=== PATIENT | male | born 1945 | race Caucasian/White ===

== ENCOUNTER 2024-09-29 11:31 | Emergency (ER) | payer OTHER ==
--- NOTE | 2024-09-29 13:01 | RAD REPORT ---
Procedure: Chest Single View HISTORY: Cough COMPARISON: none FINDINGS: The lungs are moderately hyperaerated. Bilateral upper lobe volume loss. Prominent reticular nodular opacities are present within the lungs. No significant pleural effusion noted. The heart is normal size. IMPRESSION: COPD Prominent reticular nodular opacities within the lungs. All of these may be chronic. A pneumonitis/at ypical infection can have a similar appearance.
[2024-09-29] MEDS ORDERED: AZITHROMYCIN 250 MG TAB ONE (13:27)
[2024-09-29] MEDS ORDERED: predniSONE 20 MG TAB ONE (13:27)
[2024-09-29] MEDS ORDERED: KETOROLAC 30 MG/ML INJ ONE (13:27)
[2024-09-29 13:59] LABS: ALT/SGPT 22 U/L (16-61); AST/SGOT 19 U/L (15-37); Albumin 3.3 g/dL (3.4-5.0); Albumin/Globulin Ratio 0.7 (1.1-1.8); Alkaline Phosphatase 110 U/L (45-117); Anion Gap 9.5 mEq/L (5.0-15.0); BUN Blood Urea Nitrogen 16 mg/dL (7-18); Bicarbonate 27 mEq/L (21-32); Bilirubin Total 0.4 mg/dL (0.2-1.0); Globulin 4.9 g/dL (2.3-3.5); Glomerular Filtration Rate 90 ml/min (=/>90); Glucose Level 110 mg/dL (74-106); NT PRO-BNP 1068 pg/mL (<450); Potassium 3.5 mEq/L (3.5-5.1); Protein, Total 8.2 g/dL (6.4-8.2); Sodium Level 138 mEq/L (136-145)
[2024-09-29 14:02] LABS: Bilirubin Direct < 0.2 mg/dL (0-0.2); Bilirubin Indirect, Calculated 0.2 mg/dL (0.2-0.8)
[2024-09-29 14:26] LABS: SARS-CoV-2 Antigen CONTROL BLUE LINE VIS/BG OK; SARS-CoV-2 Antigen Rapid Res Negative (Negative)
[2024-09-29] MEDS ORDERED: TRAMADOL HCL 50 MG TAB ONE (15:05)
[2024-09-29 15:10] LABS: Absolute Basophils ND K/uL (0-0.5); Absolute Eosinophils ND K/uL (0-0.5); Absolute Lymphocytes (CBC) ND K/uL (0.7-4.9); Absolute Monocytes ND K/uL (0.1-1.3); Absolute Neutrophil ND K/uL (1.8-8.0); Basophils % ND % (0-1.3); Eosinophils % ND % (0-4.4); Hematocrit ND % (39.6-49.0); Hemoglobin ND g/dL (13.6-17.9); Lymphocytes % ND % (15.3-44.8); MCH ND pg (27.0-35.0); MCHC ND g/dL (32.0-36.0); MCV ND fL (80-100); MPV ND fL (7.6-11.3); Monocytes % ND % (3.3-12.3); Neutrophils % ND % (41.7-73.7); Nucleated RBC Absolute Count ND (0-0); Nucleated Red Blood Cells % ND % (0-0); Platelet Distribution Width ND fL (9.0-17.0); Platelets ND thou/uL (152-406); RBC Red Blood Cell Count ND M/uL (4.33-5.43); Red Cell Distribution Width ND % (12.1-15.2); White Blood Count ND thou/uL (4.3-10.9)
--- NOTE | 2024-09-29 15:33 | EDPHYS ---
Physician Documentation [facility] Name: Connor Pruett Age: 78 yrs Sex: Male : 1945 Arrival Date: 09/29/2024 Time: 11:31 Bed 14 Private MD: ED Physician Dagoberto Stallworth HPI: 09/29 14:46 This 78 yrs old Male presents to ER via Wheelchair with complaints of Fatigue, Sinus rt Pain. 14:46 Patient presents to the ED with 3 days of cough, fatigue, body aches, pain over the rt left frontal and maxillary sinuses. He denies shortness of breath but the daughter states that he was short of breath. The patient denies other acute complaints at this time, symptoms are moderate in severity, no other aggravating or alleviating factors.. Historical: - Allergies: 11:48 PENICILLINS; hb - PMHx: 11:48 Hypertension; High Cholesterol; hb - PSHx: 11:48 Hernia Repair; Face; hb - Immunization history:: Adult Immunizations up to date. - Infectious Disease History:: Denies. - Social history:: Smoking status: Patient denies any tobacco usage or history of. - Family history:: not pertinent. ROS: 14:46 Constitutional: Negative for fever, chills, and weight loss, Cardiovascular: Negative rt for chest pain, palpitations, and edema, Abdomen/GI: Negative for abdominal pain, nausea, vomiting, diarrhea, and constipation, MS/Extremity: Negative for injury and deformity, Skin: Negative for injury, rash, and discoloration, Neuro: Negative for headache, weakness, numbness, tingling, and seizure, 14:46 ENT: Positive for sinus congestion, sinus pain, 14:46 Respiratory: Positive for cough, shortness of breath, Exam: 14:46 Constitutional: This is a well developed, well nourished patient who is awake, alert, rt and in no acute distress. Head/Face: Normocephalic, atraumatic. Chest/axilla: Normal chest wall appearance and motion. Nontender with no deformity. No lesions are appreciated. Cardiovascular: Regular rate and rhythm with a normal S1 and S2. No gallops, murmurs, or rubs. Normal PMI, no JVD. No pulse deficits. Respiratory: Lungs have equal breath sounds bilaterally, clear to auscultation and percussion. No rales, rhonchi or wheezes noted. No increased work of breathing, no retractions or nasal flaring. Abdomen/GI: Soft, non-tender, with normal bowel sounds. No distension or tympany. No guarding or rebound. No evidence of tenderness throughout. Skin: Warm, dry with normal turgor. Normal color with no rashes, no lesions, and no evidence of cellulitis. MS/ Extremity: Pulses equal, no cyanosis. Neurovascular intact. Full, normal range of motion. Neuro: Awake and alert, GCS 15, oriented to person, place, time, and situation. Cranial nerves II-XII grossly intact. Motor strength 5/5 in all extremities. Sensory grossly intact. Cerebellar exam normal. Normal gait. 14:46 ENT: Tenderness to palpation over the left frontal, maxillary sinuses, no other areas of tenderness, skin is normal.. 14:46 ECG was reviewed by the Attending Physician. Vital Signs: 11:46 BP 181 / 105; Pulse 89; Resp 20; Temp 97.9; Pulse Ox 96% on R/A; Weight 58.97 kg; hb Height 6 ft. 1 in. ; Pain 10/10; 15:00 BP 177 / 99; Pulse 82; Resp 16; Pulse Ox 95% on R/A; db 11:46 Body Mass Index 17.15 (58.97 kg, 185.42 cm) hb 11:46 Pain Scale: Adult hb MDM: 11:50 Medical Screening Exam initiated rt 18:00 Differential Diagnosis: Other Sinusitis, viral syndrome, b bronchospasm. Data reviewed: rt vital signs, nurses notes, lab test result(s), EKG, radiologic studies. I considered the following discharge prescriptions or medication management in the emergency department Medications were administered in the Emergency Department. See MAR. Independent interpretation of the following test(s) in the Emergency Department X-Ray: My interpretation is No infiltrate seen on interpretation of x-ray images. Test considered but Not performed: CT: No significant headache, benign physical examination, CT scan is not indicated. Care significantly affected by the following chronic conditions: Hypertension. Counseling: I had a detailed discussion with the patient and/or guardian regarding the historical points, exam findings, and any diagnostic results supporting the discharge/admit diagnosis, lab results, radiology results, the need for outpatient follow up. Response to treatment: the patient's symptoms have markedly improved after treatment. 09/29 11:57 Order name: Basic Metabolic Panel; Complete Time: 14:30 rt 09/29 11:57 Order name: CBC with Diff; Complete Time: 15:12 rt 09/29 11:57 Order name: LFT's; Complete Time: 14:30 rt 09/29 11:57 Order name: NT PRO-BNP; Complete Time: 14:30 rt 09/29 11:57 Order name: Troponin HS; Complete Time: 14:30 rt 09/29 11:57 Order name: Influenza Screen (a \T\ B); Complete Time: 14:30 rt 09/29 11:57 Order name: SARS RAPID; Complete Time: 14:30 rt 09/29 11:57 Order name: XRAY Chest (1 view); Complete Time: 14:30 rt 09/29 11:57 Order name: Cardiac monitoring; Complete Time: 15:09 rt 09/29 11:57 Order name: EKG - Nurse/Tech; Complete Time: 13:32 rt 09/29 11:57 Order name: IV Saline Lock; Complete Time: 13:32 rt 09/29 11:57 Order name: Labs collected and sent; Complete Time: 13:32 rt 09/29 11:57 Order name: O2 Per Protocol; Complete Time: 13:33 rt 09/29 11:57 Order name: O2 Sat Monitoring; Complete Time: 13:33 rt EC:46 Rate is 86 beats/min. Rhythm is regular, Normal Sinus Rhythm with No ectopy. Right axis rt deviation noted. TN interval is normal. QRS interval is normal. QT interval is normal. No Q waves. T waves are Normal. No ST changes noted. Interpreted by me. Administered Medications: 13:31 Drug: Ketorolac IM 15 mg IM once Route: IM; Site: left deltoid; hb 15:59 Follow up: Response: No adverse reaction db 13:32 Drug: predniSONE PO 40 mg PO once Route: PO; hb 15:59 Follow up: Response: No adverse reaction db 13:32 Drug: AZITHromycin PO 500 mg PO once Route: PO; hb 15:59 Follow up: Response: No adverse reaction db 15:09 Drug: traMADol PO 50 mg PO once Route: PO; db 16:00 Follow up: Response: No adverse reaction db Disposition Summary: 09/29/24 15:33 Discharge Ordered Notes: Location: Home rt Problem: new rt Symptoms: have improved rt Condition: Stable rt Diagnosis - Acute frontal sinusitis rt - Cough rt - Essential (primary) hypertension rt Followup: rt - With: Private Physician - When: 2 - 3 days - Reason: Discharge Instructions: - Discharge Summary Sheet rt - Hypertension, Adult rt - Sinusitis, Adult rt - Cough, Adult rt Forms: - Medication Reconciliation Form rt - Antibiotic Education rt - Prescription Opioid Use rt - Patient Portal Instructions rt - Leadership Thank You Letter rt Prescriptions: - azithromycin 250 mg Oral tablet - take 1 tablet ORAL route daily for 4 days start on day 2 of therapy; 4 tablet; rt Refills: 0, Product Selection Permitted - Lisinopril 10 mg Oral tablet - take 1 tablet ORAL route once daily; 30 tablet; Refills: 0, Product Selection rt Permitted - Tramadol 50 mg Oral Tablet - take 1 tablet ORAL route every 8 hours as needed; 12 tablet; Refills: 0, rt Product Selection Permitted - Prednisone 20 mg Oral tablet - take 1 tablet ORAL route once daily; 4 tablet; Refills: 0, Product Selection rt Permitted Signatures: Dispatcher [employer] EDMS Rosita Moya RN RN Mary Tai RN RN db Dagoberto Stallworth MD MD rt Corrections: (The following items were deleted from the chart) 11:50 11:48 Allergies: No Known Allergies; hb hb 11:57 11:57 BASIC METABOLIC PANEL+C.LAB.BRZ ordered. EDMS EDMS 11:57 11:57 CBC+H.LAB.BRZ ordered. EDMS EDMS 11:57 11:57 HEPATIC FUNCTION+C.LAB.BRZ ordered. EDMS EDMS 11:57 11:57 PROBNP+C.LAB.BRZ ordered. EDMS EDMS 11:57 11:57 Troponin High Sensitivity+C.LAB.BRZ ordered. EDMS EDMS 11:57 11:57 Influenza Screen (A \T\ B)+BA.LAB.BRZ ordered. EDMS EDMS 11:57 11:57 SARS-COV-2 Antigen Rapid+I.LAB.BRZ ordered. EDMS EDMS 11:57 11:57 Chest Single View+RAD.RAD.BRZ ordered. EDMS EDMS
--- NOTE | 2024-09-29 15:33 | ER ---
Nurse's Notes [facility] Name: Connor Pruett Age: 78 yrs Sex: Male : 1945 Arrival Date: 09/29/2024 Time: 11:31 Bed 14 Private MD: Diagnosis: Acute frontal sinusitis;Cough;Essential (primary) hypertension Presentation: 09/29 11:46 Chief complaint: Sinus congestion, headache, extreme fatigue and body aches x 3 days. hb Coronavirus screen: At this time, the client does not indicate any symptoms associated with coronavirus-19. Ebola Screen: No symptoms or risks identified at this time. Initial Sepsis Screen: Does the patient meet any 2 criteria? No. Patient's initial sepsis screen is negative. Does the patient have a suspected source of infection? No. Patient's initial sepsis screen is negative. Risk Assessment: Do you want to hurt yourself or someone else? Patient reports no desire to harm self or others. Onset of symptoms was September 27, 2024. 11:46 Method Of Arrival: Wheelchair hb 11:46 Acuity: LOLIS 3 hb Historical: - Allergies: 11:48 PENICILLINS; hb - PMHx: 11:48 Hypertension; High Cholesterol; hb - PSHx: 11:48 Hernia Repair; Face; hb - Immunization history:: Adult Immunizations up to date. - Infectious Disease History:: Denies. - Social history:: Smoking status: Patient denies any tobacco usage or history of. - Family history:: not pertinent. Screenin:29 [facility] ED Fall Risk Assessment (Adult) History of falling in the last 3 months, db including since admission No falls in past 3 months (0 pts) Confusion or Disorientation No (0 pts) Intoxicated or Sedated No (0 pts) Impaired Gait Yes (1 pt) Mobility Assist Device Used Yes (1 pt) Altered Elimination No (0 pt) Score/Fall Risk Level 0 - 2 = Low Risk Oriented to surroundings, Maintained a safe environment. Abuse screen: Denies threats or abuse. Denies injuries from another. Nutritional screening: No deficits noted. Tuberculosis screening: No symptoms or risk factors identified. Assessment: 15:00 Reassessment: Patient appears in no apparent distress at this time. Patient and/or db family updated on plan of care and expected duration. Pain level reassessed. Patient is alert, oriented x 3, equal unlabored respirations, skin warm/dry/pink. General: Appears in no apparent distress. comfortable, Behavior is calm, cooperative. Pain: Complains of pain in face. Neuro: Level of Consciousness is awake, alert, obeys commands, Oriented to person, place, time, situation. Respiratory: Airway is patent Respiratory effort is even, unlabored, Respiratory pattern is regular, symmetrical. 15:58 Reassessment: Patient appears in no apparent distress at this time. Patient and/or db family updated on plan of care and expected duration. Pain level reassessed. Patient is alert, oriented x 3, equal unlabored respirations, skin warm/dry/pink. Vital Signs: 11:46 BP 181 / 105; Pulse 89; Resp 20; Temp 97.9; Pulse Ox 96% on R/A; Weight 58.97 kg; hb Height 6 ft. 1 in. ; Pain 10/10; 15:00 BP 177 / 99; Pulse 82; Resp 16; Pulse Ox 95% on R/A; db 11:46 Body Mass Index 17.15 (58.97 kg, 185.42 cm) hb 11:46 Pain Scale: Adult hb ED Course: 11:34 Patient arrived in ED. im 11:36 Dagoberto Stallworth MD is Attending Physician. rt 11:48 Triage completed. hb 11:50 Arm band placed on. hb 12:09 XRAY Chest (1 view) In Process Unspecified. EDMS 13:32 Initial lab(s) drawn, by me, sent to lab. EKG done, by ED staff, reviewed by Dagoberto Stallworth MD COVID swab sent to lab. Flu and/or RSV swab sent to lab. Inserted saline lock: 20 gauge in right forearm, using aseptic technique. Blood collected. Flushed with 10 mL NS. 13:33 SARS RAPID Sent. ty 13:33 Influenza Screen (a \T\ B) Sent. ty 13:33 Basic Metabolic Panel Sent. ty 13:33 CBC with Diff Sent. ty 13:33 LFT's Sent. ty 13:33 NT PRO-BNP Sent. ty 13:33 Troponin HS Sent. ty 15:00 Patient has correct armband on for positive identification. Bed in low position. Call db light in reach. Side rails up X 1. Pulse ox on. NIBP on. Warm blanket given. Pillow given. 15:08 Mary Tai, RN is Primary Nurse. db 15:58 Provided Education on: DISCHARGE. db 15:58 No provider procedures requiring assistance completed. IV discontinued, intact, db bleeding controlled, No redness/swelling at site. Administered Medications: 13:31 Drug: Ketorolac IM 15 mg IM once Route: IM; Site: left deltoid; hb 15:59 Follow up: Response: No adverse reaction db 13:32 Drug: predniSONE PO 40 mg PO once Route: PO; hb 15:59 Follow up: Response: No adverse reaction db 13:32 Drug: AZITHromycin PO 500 mg PO once Route: PO; hb 15:59 Follow up: Response: No adverse reaction db 15:09 Drug: traMADol PO 50 mg PO once Route: PO; db 16:00 Follow up: Response: No adverse reaction db Medication: 15:58 VIS not applicable for this client. db Outcome: 15:33 Discharge ordered by MD. rt 15:58 Discharged to home via wheelchair, with family, db 15:58 Condition: stable 15:58 Discharge instructions given to patient, Instructed on discharge instructions, follow up and referral plans. Prescriptions given X 4, 16:00 Patient left the ED. db Signatures: Dispatcher [employer] EDMS Rosita Moya RN RN hb Benton, Danielle, RN RN db Dagoberto Stallworth MD MD rt Gissell Flynn im Jam Cotton ty Corrections: (The following items were deleted from the chart) 11:50 11:48 Allergies: No Known Allergies; hb hb 11:54 11:46 Chief complaint: Sinus congestion, headache, and body aches x 3 days. hb hb 11:54 11:46 Acuity: LOLIS 4 hb hb
[2024-09-29 18:20] VITALS: TEMP 97.9
[2024-09-29 18:21] VITALS: BP 177/99; O2SAT 95
--- NOTE | 2024-10-03 12:43 | EKG ---
Test Date: 2024-09-29 Test Time: 13:23:57 [employer] Can Laborer: JESSICA MEASUREMENT RESULTS: Intervals: Rate: 86 PA: 142 QRSD: 84 QT: 374 QTc: 447 [place]: P: 87 PA: 142 QRS: 91 T: 72 INTERPRETIVE STATEMENTS: Normal sinus rhythm with sinus arrhythmia Rightward axis Borderline ECG No previous ECG available for comparison Electronically Signed On 10-03-24 12:35:58 [employer]ST [employer] OPERATOR by Crow Menezes
== END 2024-09-29 16:00 | disposition home or self-care (01) ==
LOC: ER 11:31
DX: J01.10 Acute frontal sinusitis, unspecified (principal); I10 Essential (primary) hypertension; Z11.52 Encounter for screening for COVID-19
CPT/HCPCS: 85025; 80048; 36415; 80076; 84484; 83880; 87804 ×2; 71045; 96372; 99284; 87811; J7512; 93005

== ENCOUNTER 2024-12-04 13:33 | Inpatient (IN) | payer OTHER ==
--- OUTSIDE RECORDS SUMMARY | 2024-12-04 13:37 | XMS REPORT | Continuity of Care Document ---
Author Name Unknown Address [address] [facility] [address] [place] [address] Organization [facility] [place] Address [address] [facility] [address] [place] [address] Care Team Providers Care [employer] Name Role Phone Narciso CASAREZ, Florenciaalejandra Primary Care Physic romero NOMAN AVILA Attending Clinician Alesia Elizalde MD, Noman Brian Attending Clinician [phone] Doctor Unassigned, Fithian Attending Clinician U navailable ANUM_MARSHALL_Yovana_S Attending Clinician Unavailable NOMAN AVILA Admitting Clinician Alesia Elizalde MD, Noman Brian Admitting Clinician [phone] JULIUS_Yovana_Contreras Admitting Clinician Unavailable Payers Payer Name Policy Type Policy Number Effective Date Expirati on Date Source MEDICARE PART A \T\ [id number] 2009 00:00:00 Problems Condition Name Condition Details Condition Category Status Onset Date Resolution Date Last Treatment Date Treating Clinician Comments Source Dyspnea (finding) Dyspnea (finding) Active Problem 12/26/2018 [facility] Problem Active 2018-12-26 11:02:54 Bruce Alcantara Hypoxemia (disorder) Hypoxemia (disorder) Active Problem 12/26/2018 [facility] Problem Active 2018-12-26 11:02:54 Bruce Alcantara Chronic obstructiv e lung disease (disorder) Chronic obstructiv e lung disease (disorder) Active Problem 12/26/2018 [facility] Problem Active 2018-12-26 11:02:54 Bruce Alcantara Cough (finding) Cough (finding) Active Problem 12/26/2018 [facility] Problem Active 2018-12-26 11:02:54 Bruce Alcantara Allergies, Adverse Reactions, Alerts Allergy Name Allergy Type Status Severity Reaction(s) Onset Date Inactive Date Treating Clinician Comments Source Penicill in G Drug Allergy Active Hives 12-03 00:00: 00 [facility] PENICILL IN G DRUG INGREDI Active High Hives 12-03 00:00: 00 [facility] NO KNOWN ALLERGIE S Drug Class Active [facility] penicill ins penicill ins Active Bruce Alcantara Social History Social Habit Start Date Stop Date Quantity Comments Source History of tobacco use Cigarette Smoker [facility] Exposure to SARS-CoV-2 (event) 2022-12-07 00:00:00 2022-12-17 11:53:00 Not sure [facility] Tobacco use and exposure 2022-12-03 00:00:00 2022-12-03 00:00:00 Smokeless tobacco non-user [facility] Sex Assigned At 1945 00:00:00 1945 00:00:00 [facility] Smoking Status Start Date Stop Date Source Smokes tobacco daily 2022-12-03 00:00:00 [facility] Social History 2017-11-08 20:15:53 2017-11-08 20:15:53 Tai Alcantara Medications Ordered Medication Name Filled Medication Name Start Date Stop Date Current Medication? Ordering Clinician Indication Dosage Frequency Signature (SIG) Comments Components Source neomycin-po lymyxin-dex amethasone (MAXITROL) 3.5 mg/g-10,000 unit/g-0.1 % ophthalmic ointment 12-22 18:07: 00 12-22 18:47 :43 No PRN, Starting on Tue12/22/22 at 1307, Until Tue12/22/22 at 1347, Routine, Intra-op [facility] sodium chloride (NS) injection 12-22 18:06: 00 12-22 18:47 :43 No PRN, Starting on Tue12/22/22 at 1306, Until Tue12/22/22 at 1347, Routine, [facility]-op [facility] dexamethaso ne (DECADRON PHOSPHATE) injection 12-22 18:06: 00 12-22 18:47 :43 No PRN, Starting on Tue12/22/22 at 1306, Until Tue12/22/22 at 1347, Routine, Intra-op [facility] ceFAZolin (ANCEF) injection 12-22 18:06: 00 12-22 18:47 :43 No PRN, Starting on Tue12/22/22 at 1306, Until Tue12/22/22 at 1347, ELVIRA, Intra-op [facility] carbachoL (MIOSTAT) 0.01 % intraocular injection 12-22 18:05: 00 12-22 18:47 :43 No PRN, Starting on Tue12/22/22 at 1305, Until Tue12/22/22 at 1347, Routine, Intra-op [facility] EPINEPHrine 1:1,000 (1 mg/mL) (ADRENALIN) injection 12-22 17:53: 00 12-22 18:47 :43 No PRN, Starting on Tue12/22/22 at 1253, Until Tue12/22/22 at 1347, Routine, Intra-op [facility] chondroitin sulf-sod hyaluronate (DUOVISC VISCO ELASTIC) intraocular injection 12-22 17:53: 00 12-22 18:47 :43 No PRN, Starting on Tue12/22/22 at 1253, Until Tue12/22/22 at 1347, Routine, Intra-op [facility] balanced salt irrig soln comb1 (BSS PLUS) ophthalmic solution 500 mL bag 12-22 17:53: 00 12-22 18:47 :43 No PRN, Starting on Tue12/22/22 at 1253, Until Tue12/22/22 at 1347, Routine, Intra-op [facility] water for irrigation irrigation solution 12-22 17:48: 00 12-22 18:47 :43 No PRN, Starting on Tue12/22/22 at 1248, Until Tue12/22/22 at 1347, Routine, Intra-op [facility] Hyaluronida se, Human Recomb. (HYLENEX) injection 12-22 17:45: 00 12-22 18:47 :43 No PRN, Starting on Tue12/22/22 at 1245, Until Tue12/22/22 at 1347, Routine, Intra-op [facility] eye block syringe 11 mL 12-22 17:45: 00 12-22 18:47 :43 No PRN, Starting on Tue12/22/22 at 1245, Until Tue12/22/22 at 1347, Intra-op [facility] albuterol 90 mcg/actuati on inhaler 12-22 17:14: 11 Yes 2{puff} Inhale 2 Puffs every 6 (six) hours as needed for Wheezing or Shortness of Breath. [facility] ipratropium 17 mcg/actuati on inhaler 12-22 17:14: 11 Yes 2{puff} Inhale 2 Puffs 4 (four) times daily. As needed [facility] propylene glycol/peg 400/PF (SYSTANE, PF, OPHTHALMIC) 12-22 17:14: 11 Yes 1[drp] Place 1 Drop in each eye as needed. Both eyes [facility] Carica Papaya (PAPAYA ENZYME) Tab 12-22 17:14: 11 Yes 1{tbl} Take 1 tablet by mouth in the morning. [facility] ibuprofen 600 mg tablet 12-22 17:14: 11 Yes 600mg Take 1 tablet by mouth in the morning. [facility] dextrometho rphan-guaif enesin (MUCINEX DM) 30-600 mg per tablet 12-22 17:14: 11 Yes 1{tbl} Take 1 tablet by mouth in the morning and 1 tablet in the evening. [facility] hydrocodone /chlorphen p-stirex (TUSSIONEX PENNKINETIC ER ORAL) 12-22 17:14: 11 Yes 1{tbl} Take 1 tablet by mouth in the morning and 1 tablet in the evening. [facility] cyclopent 1%-tropic 1%-phenyl 2.5%-ketor 0.5% (MYDRIATIC #5) ophthalmic solution syringe 0.5 mL 12-22 16:45: 00 12-22 16:48 :00 No .5mL 0.5 mL, Right Eye, ONCE, 1 dose, On Tue12/22/22 at 1145, Routine, DSU Pre-op [facility] lactated ringers IV infusion 1,000 mL 12-22 16:45: 00 12-22 16:51 :00 No 1000mL at 42 mL/hr, 1,000 mL, IV Infusion, ONCE, 1 dose, On Tue12/22/22 at 1145, Routine, DSU Pre-op [facility] lactated ringers IV infusion 1,000 mL 12-08 17:30: 00 Yes 1000mL at 75 mL/hr, 1,000 mL, IV Infusion, CONTINUOUS , Starting on Tue12/08/22 at 1230, Until Discontinu ed, Routine, PACU [facility] FENTanyl PF (SUBLIMAZE (PF)) injection 25 mcg 12-08 17:21: 10 Yes 25ug 25 mcg, Slow IV Push, Q5MIN PRN, 4 doses, Starting on Tue12/08/22 at 1221, Until Discontinu ed, Routine, Pain (scale 4-6), PACU [facility] HYDROmorphO ne (DILAUDID) injection 0.2 mg 12-08 17:21: 10 Yes .2mg 0.2 mg, Slow IV Push, Q5MIN PRN, 10 doses, Starting on Tue12/08/22 at 1221, Until Discontinu ed, Routine, Pain (scale 7-10), PACU
Us e approved by (Faculty): PACU USE -ANESTHESI A SERVICE-HY DROMORPHON E INJECTIONS [facility] ondansetron (ZOFRAN (PF)) injection 4 mg 12-08 17:21: 10 Yes 4mg 4 mg, Slow IV Push, PRN, 1 dose, Starting on Tue12/08/22 at 1221, Until Discontinu ed, Routine, Nausea and Vomiting (N/V), [facility] irrigation solution 12-08 16:44: 00 12-08 17:23 :00 No PRN, Starting on Tue12/08/22 at 1144, Until Tue12/08/22 at 1223, Routine, Intra-op [facility] sodium chloride (NS) injection 12-08 16:41: 00 12-08 17:23 :00 No PRN, Starting on Tue12/08/22 at 1141, Until Tue12/08/22 at 1223, Routine, Intra-op [facility] neomycin-po lymyxin-dex amethasone (MAXITROL) 3.5 mg/g-10,000 unit/g-0.1 % ophthalmic ointment 12-08 16:40: 00 12-08 17:23 :00 No PRN, Starting on Tue12/08/22 at 1140, Until Tue12/08/22 at 1223, Routine, Intra-op [facility] Hyaluronida se, Human Recomb. (HYLENEX) injection 12-08 16:40: 00 12-08 17:23 :00 No PRN, Starting on Tue12/08/22 at 1140, Until Tue12/08/22 at 1223, Routine, Intra-op [facility] eye block syringe 11 mL 12-08 16:39: 00 12-08 17:23 :00 No PRN, Starting on Tue12/08/22 at 1139, Until Tue12/08/22 at 1223, Intra-op [facility] EPINEPHrine 1:1,000 (1 mg/mL) (ADRENALIN) injection 12-08 16:39: 00 12-08 17:23 :00 No PRN, Starting on Tue12/08/22 at 1139, Until Tue12/08/22 at 1223, Routine, Intra-op [facility] chondroitin sulf-sod hyaluronate (DUOVISC VISCO ELASTIC) intraocular injection 12-08 16:39: 00 12-08 17:23 :00 No PRN, Starting on Tue12/08/22 at 1139, Until Tue12/08/22 at 1223, Routine, [facility]amethas[facility] (DECADRON PHOSPHATE) injection 12-08 16:38: 00 12-08 17:23 :00 No PRN, Starting on Tue12/08/22 at 1138, Until Tue12/08/22 at 1223, Routine, Intra-op [facility] ceFAZolin (ANCEF) injection 12-08 16:38: 00 12-08 17:23 :00 No PRN, Starting on Tue12/08/22 at 1138, Until Tue12/08/22 at 1223, ELVIRA, Intra-op Univers [facility] carbachoL (MIOSTAT) 0.01 % intraocular injection 12-08 16:38: 00 12-08 17:23 :00 No PRN, Starting on Tue12/08/22 at 1138, Until Tue12/08/22 at 1223, Routine, Intra-op [facility] balanced salt irrig soln comb1 (BSS PLUS) ophthalmic solution 500 mL bag 12-08 16:37: 00 12-08 17:23 :00 No PRN, Starting on Tue12/08/22 at 1137, Until Tue12/08/22 at 1223, Routine, Intra-op [facility] cyclopent 1%-tropic 1%-phenyl 2.5%-ketor 0.5% (MYDRIATIC #5) ophthalmic solution syringe 0.5 mL 12-08 15:15: 00 12-08 15:29 :00 No .5mL 0.5 mL, Left Eye, ONCE, 1 dose, On Tue12/08/22 at 1015, Routine, DSU Pre-op [facility] albuterol 90 mcg/actuati on inhaler 12-08 14:49: 09 Yes 2{puff} Inhale 2 Puffs every 6 (six) hours as needed for Wheezing or Shortness of Breath. [facility] ipratropium 17 mcg/actuati on inhaler 12-08 14:49: 09 Yes 2{puff} Inhale 2 Puffs 4 (four) times daily. As needed [facility] propylene glycol/peg 400/PF (SYSTANE, PF, OPHTHALMIC) 12-08 14:49: 09 Yes 1[drp] Place 1 Drop in each eye as needed. Both eyes [facility] Carica Papaya (PAPAYA ENZYME) Tab 12-08 14:49: 09 Yes 1{tbl} Take 1 tablet by mouth in the morning. [facility] ibuprofen (IBU) 600 mg tablet 12-08 14:49: 09 Yes 600mg Take 1 tablet by mouth in the morning. [facility] Amlodipine 10 MG / atorvastati n 10 MG Oral Tablet 2016-09 19:49: 00 Yes 1 tab, PO, Bedtime, # 30 tab, 0 Refill(s) Bruce Alcantara Vital Signs Vital Name Observation Time Observation Value Comments S ource Oxygen saturation in Arterial blood by Pulse oximetry 2022-12-22 18:30:00 97 /min [facility] Systolic blood pressure 2022-12-22 18:30:00 174 mm[Hg] [facility] Diastolic blood pressure 2022-12-22 18:30:00 92 mm[Hg] [facility] Respiratory rate 2022-12-22 18:25:00 15 /min [facility] Heart rate 2022-12-22 18:20:00 87 /min [facility] Body temperature 2022-12-22 18:11:00 36.39 Radha [facility] Body height 2022-12-17 16:00:00 185.4 cm [facility] Body weight 2022-12-17 16:00:00 63.504 kg [facility] BMI 2022-12-17 16:00:00 18.47 kg/m2 [facility] Systolic blood pressure 2022-12-22 16:47:00 162 mm[Hg] [facility] Diastolic blood pressure 2022-12-22 16:47:00 97 mm[Hg] [facility] Heart rate 2022-12-22 16:45:00 91 /min [facility] Body temperature 2022-12-22 16:45:00 36.39 Radha [facility] Respiratory rate 2022-12-22 16:45:00 18 /min [facility] Oxygen saturation in Arterial blood by Pulse oximetry 2022-12-22 16:45:00 96 /min [facility] Body height 2022-12-17 16:00:00 185.4 cm Univ [facility] Body weight 2022-12-17 16:00:00 63.504 kg Univ [facility] BMI 2022-12-17 16:00:00 18.47 kg/m2 Univ [facility] Systolic blood pressure 2022-12-08 17:30:00 161 mm[Hg] [facility] Diastolic blood pressure 2022-12-08 17:30:00 96 mm[Hg] [facility] Respiratory rate 2022-12-08 17:30:00 18 /min [facility] Oxygen saturation in Arterial blood by Pulse oximetry 2022-12-08 17:30:00 94 /min [facility] Body temperature 2022-12-08 17:09:00 36.39 Radha [facility] Heart rate 2022-12-08 15:19:00 86 /min [facility] Body height 2022-12-03 15:00:00 185.4 cm [facility] Body weight 2022-12-03 15:00:00 63.504 kg Univ [facility] BMI 2022-12-03 15:00:00 18.47 kg/m2 [facility] Systolic blood pressure 2022-12-08 15:22:00 165 mm[Hg] [facility] Diastolic blood pressure 2022-12-08 15:22:00 93 mm[Hg] [place] [facility] Heart rate 2022-12-08 15:19:00 86 /min [facility] temperature 2022-12-08 15:19:00 36.56 Radha [facility] Respiratory rate 2022-12-08 15:19:00 14 /min [facility] Oxygen saturation in Arterial blood by Pulse oximetry 2022-12-08 15:19:00 98 /min [place] [facility] Body height 2022-12-03 15:00:00 185.4 cm [facility] Body weight 2022-12-03 15:00:00 63.504 kg [facility] BMI 2022-12-03 15:00:00 18.47 kg/m2 [facility] Systolic (mm Hg) 2017-11-08 20:14:00 [facility] Diastolic (mm Hg) 2017-11-08 20:14:00 [facility] Heart Rate 2017-11-08 20:14:00 [facility] Weight 2017-11-08 20:14:00 [facility] Weight 2017-08-02 19:46:00 [facility] Heart Rate 2017-08-02 19:46:00 [facility] Systolic (mm Hg) 2017-08-02 19:46:00 [facility] Diastolic (mm Hg) 2017-08-02 19:46:00 [facility] Procedures Procedure Date / Time Performed Performing Clinician Source PHACOEMULSIFICATION OF CATARACT WITH INTRAOCULAR LENS IMPLANT 2022-12-22 17:34:00 Noman Avila [facility] DAY SURGERY - [facility] 2022-12-22 05:01:00 Doctor Unassigned, Fithian [facility] PHACOEMULSIFICATION OF CATARACT WITH INTRAOCULAR LENS IMPLANT 2022-12-08 16:30:00 Noman Avila [facility] SURGERY - [facility] 2022-12-08 05:01:00 Doctor Unassigned, Fithian [facility] SURGERY - [facility] 2022-12-08 05:01:00 Doctor Unassigned, Fithian [facility] NOTICE OF BILLING PRACTICES FOR MEDICARE PATIENTS 2022-11-29 22:32:42 Doctor Unassigned, Fithian [facility] NOTICE OF BILLING PRACTICES FOR MEDICARE PATIENTS 2022-11-29 22:32:42 Doctor Unassigned, Fithian [facility] PATIENT FINANCIAL POLICY 2022-11-29 22:31:49 Doctor Unassigned, Fithian [facility] PATIENT FINANCIAL POLICY 2022-11-29 22:31:49 Doctor Unassigned, Fithian [facility] NO SHOW OR MISSED APPOINTMEN T POLICY ACKNOWLEDGEMENT 2022-11-29 22:31:25 Doctor Unassigned, Fithian [facility] NO SHOW OR MISSED APPOINTMEN T POLICY ACKNOWLEDGEMENT 2022-11-29 22:31:25 Doctor Unassigned, Fithian [facility] NOTICE OF PRIVACY PRACTICES 2022-11-29 22:31:01 Doctor Unassigned, Fithian [facility] NOTICE OF PRIVACY PRACTICES 2022-11-29 22:31:01 Doctor Unassigned, Fithian [facility] CONSENT/REFUSAL FOR DIAGNOSI S AND TREATMENT 2022-11-29 22:30:35 Doctor Unassigned, Fithian [facility] CONSENT/REFUSAL FOR DIAGNOSI S AND TREATMENT 2022-11-29 22:30:35 Doctor Unassigned, Fithian [facility] ASSIGNMENT OF BENEFITS 2022-11-29 22:26:28 Doctor Unassigned, Fithian [facility] ASSIGNMENT OF BENEFITS 2022-11-29 22:26:28 Doctor Unassigned, Fithian [facility] Encounters Start Date/Time End Date/Time Encounter Type Admission Type Attending [facility] Care Facility Care Department Encounter ID Source 2022-12-22 11:36:00 2022-12-22 13:45:00 Outpatient R NOMAN AVILA [facility] OPH [id number] [facility] 2022-12-22 11:36:00 2022-12-22 13:45:00 Hospital Encounter Noman Avila [facility] [id number] [facility] 2022-12-22 11:55:00 2022-12-22 12:30:00 Surgery Noman Avila [facility] [id number] [id number] [facility] 2022-12-22 00:00:00 2022-12-22 00:00:00 Orders Only Doctor Unassigned, Fithian [facility] [id number] [id number] [facility] 2022-12-13 00:00:00 2022-12-13 00:00:00 Outpatient GC_TNC_Lovi tt_S PRIV PRIV [id number] [facility] 2022-12-13 00:00:00 2022-12-13 00:00:00 Outpatient GC_TNC_Lovi tt_S PRIV PRIV [id number] [facility] 2022-12-08 10:13:00 2022-12-08 12:45:00 Hospital Encounter Noman Avila [facility] [id number] [id number] [facility] 2022-12-08 10:13:00 2022-12-08 12:45:00 Outpatient R NOMAN AVILA [facility] OPH [id number] [facility] 2022-12-08 10:45:00 2022-12-08 11:20:00 Surgery Jose AntonioNoman [facility] [id number] [id number] [facility] 2021-05-15 00:00:00 2021-05-15 00:00:00 Outpatient GC_TNC_Lovi tt_S PRIV PRIV [id number] [facility] 2018-05-09 16:30:00 2018-06-08 16:30:00 Ambulatory Pre-Reg nullFlavo r [facility] [id number] Bruce Alcantara 2017-11-08 21:00:00 2017-11-09 05:59:59 Outpatient nullFlavo r [facility] [place] [id number] Bruce Alcantara 2017-11-08 20:30:00 2017-11-09 05:59:59 Outpatient nullFlavo r [facility] Pulmon[facility] [place] [id number] Bruce Alcantara 2017-11-08 21:00:00 2017-11-08 21:00:00 Ambulatory Pre-Reg nullFlavo r [facility] [place] [id number] Bruce Alcantara 2017-08-02 20:00:00 2017-08-03 05:59:59 Outpatient nullFlavo r [facility] [place] [id number] Bruce Alcantara
--- NOTE | 2024-12-04 14:03 | RAD REPORT ---
EXAMINATION: ONE VIEW CHEST XR CLINICAL INDICATION: COPD TECHNIQUE: Frontal chest projection is submitted. Examination is limited by patient positioning and t echnique. COMPARISON: 09/29/2024 FINDINGS: Prominent diffuse COPD. Moderate patchy infiltrate is present right lower lobe with pleural effusion. The heart is normal in size. No displaced fractures identified. Tortuous thoracic aorta. IMPRESSION: Moderate right lower lobe pneumonia.
[2024-12-04 14:11] LABS: Absolute Basophils 0.1 K/uL (0-0.5); Absolute Monocytes 1.9 K/uL (0.1-1.3); Absolute Neutrophil 15.2 K/uL (1.8-8.0); Basophils % 0.4 % (0-1.3); Hematocrit 29.8 % (39.6-49.0); Hemoglobin 10.1 g/dL (13.6-17.9); Lymphocytes % 5.6 % (15.3-44.8); MCH 32.5 pg (27.0-35.0); MCHC 33.9 g/dL (32.0-36.0); MCV 95.9 fL (80-100); Monocytes % 10.2 % (3.3-12.3); Neutrophils % 83.8 % (41.7-73.7); Platelets 703 thou/uL (152-406); RBC Red Blood Cell Count 3.11 M/uL (4.33-5.43); Red Cell Distribution Width 14.4 % (12.1-15.2)
[2024-12-04 14:30] LABS: Albumin 1.9 g/dL (3.4-5.0); Albumin/Globulin Ratio 0.4 (1.1-1.8); Anion Gap 7.2 mEq/L (5.0-15.0); Bilirubin Direct 0.2 mg/dL (0-0.2); Bilirubin Indirect, Calculated 0.2 mg/dL (0.2-0.8); Bilirubin Total 0.4 mg/dL (0.2-1.0); Globulin 5.2 g/dL (2.3-3.5); Magnesium 2.1 mg/dL (1.6-2.4); Potassium 4.2 mEq/L (3.5-5.1); Protein, Total 7.1 g/dL (6.4-8.2); Troponin High Sensitivity 15.6 pg/mL (<58.9)
[2024-12-04] MEDS ORDERED: VANCOMYCIN 1 GM/VIAL ONE (16:25)
[2024-12-04] MEDS ORDERED: IPRATROPIUM BROM 0.5MG/2.5ML ONE (16:25)
[2024-12-04] MEDS ORDERED: ALBUTEROL 2.5 MG/3 ML NEB SOL ONE (16:25)
[2024-12-04] MEDS ORDERED: NA CHLORIDE 0.9% 500 ML ONE (16:26)
[2024-12-04] MEDS ORDERED: VANCOMYCIN 500 MG/VIAL ONE (16:26)
[2024-12-04] MEDS ORDERED: AZITHROMYCIN 500 MG INJ IVPB ONE (16:26)
--- NOTE | 2024-12-04 16:29 | EDPHYS ---
Physician Documentation [facility] Name: Connor Pruett Age: 79 yrs Sex: Male : 1945 Arrival Date: 12/04/2024 Time: 13:33 Bed 13 Private MD: ED Physician Chino Drummond HPI: 12/04 13:37 This 79 yrs old Male presents to ER via EMS with complaints of Breathing Difficulty, ci Cough. 13:37 Patient is an 79-year-old male with PMH hypertension, hyperlipidemia, COPD who presents ci to the ED with chief complaint of cough, weight loss, shortness of breath. Reports shortness of breath began today, weight loss has been ongoing for a while. No chest pain, has had a productive clear cough. Also endorses pedal edema. No fever, wheezing. Historical: - Allergies: 13:36 PENICILLINS; kc6 - PMHx: 13:36 High Cholesterol; Hypertension; Chronic obstructive lung disease; kc6 - PSHx: 13:36 hernia repair; face; kc6 - Immunization history:: Adult Immunizations up to date. - Infectious Disease History:: Denies. - Social history:: Smoking status: Patient reports the use of cigarette tobacco products, smokes one pack cigarettes per day. - History obtained from: EMS. ROS: 13:37 Constitutional: Positive for chills, weight loss, Negative for body aches, chills, ci 13:37 Cardiovascular: Positive for edema, Negative for chest pain, orthopnea, palpitations, 13:37 Respiratory: Positive for cough, shortness of breath, 13:37 Abdomen/GI: Negative for abdominal pain, nausea, vomiting, and diarrhea, 17:18 Abdomen/GI: Negative for abdominal pain, nausea, vomiting, diarrhea, and constipation, ci Exam: 13:37 Constitutional: This is a well developed, well nourished patient who is awake, alert, ci and in no acute distress. Head/Face: Normocephalic, atraumatic. 13:37 Cardiovascular: Rate: tachycardic, Rhythm: Pulses: Pulses are 2+ in right radial artery and left radial artery. 13:37 Respiratory: Respirations: tachypnea, that is mild, 16:30 Eyes: Pupils equal round and reactive to light, extra-ocular motions intact. Lids and ci lashes normal. Conjunctiva and sclera are non-icteric and not injected. Cornea within normal limits. Periorbital areas with no swelling, redness, or edema. 16:30 Cardiovascular: Rate: 16:30 Abdomen/GI: Inspection: abdomen appears normal, Bowel sounds: normal, Palpation: abdomen is soft and non-tender, 17:18 ECG was reviewed by the Attending Physician. EKG shows normal sinus rhythm, heart rate ci 100, QTc 438, no acute ischemic changes. Vital Signs: 13:35 BP 142 / 82; Pulse 107; Resp 21 S; Temp 98.9(O); Pulse Ox 95% on R/A; Weight 56.7 kg kc6 (R); Height 6 ft. 1 in. (R); 15:05 BP 139 / 74; Pulse 102; Resp 25 S; Pulse Ox 94% on R/A; kc6 16:39 BP 122 / 71; Pulse 104; Resp 21 S; Pulse Ox 100% on Nebulizer Mask; kc6 18:03 BP 117 / 64; Pulse 108; Resp 25 S; Pulse Ox 92% on R/A; kc6 19:00 BP 119 / 90; Pulse 100; Resp 22; Pulse Ox 99% ; me1 20:00 BP 131 / 61; Pulse 101; Resp 22; Pulse Ox 96% ; me1 21:00 BP 121 / 72; Pulse 102; Resp 19; Pulse Ox 96% ; me1 13:35 Body Mass Index 16.49 (56.70 kg, 185.42 cm) kc6 Procedures: 17:18 Performed Critical care. I have personally spent 35 minutes of critical care time, ci exclusive of time spent on any procedures, in evaluation and management of this critically ill patient's condition of Sepsis. I provided the following critical care treatment blood cultures, antibiotics, frequent reassessment. . MDM: 13:35 Medical Screening Exam initiated ci 16:29 Differential diagnosis: CHF exacerbation, Chronic Obstructive Pulmonary Disease ci pneumonia, pulmonary edema, Pulmonary Embolism Sepsis Unstable Angina. Data reviewed: vital signs, nurses notes. Historians other than the Patient: EMS: . ED course: Patient presents with generalized weakness, weight loss, cough and inability to care for self. Patient's daughter would like patient admitted because she is unable to care for him. Patient was found to have pneumonia, started on antibiotics, will admit for further management and investigation. Patient is slightly tachypneic, giving DuoNeb for symptoms.. 12/04 13:37 Order name: Basic Metabolic Panel; Complete Time: 15:53 ci 12/04 13:37 Order name: CBC with Diff; Complete Time: 15:53 ci 12/04 17:23 Interpretation: Abnormal: WBC 18.20; HGB 10.1; significant leukocytosis, possible ci sepsis. Anemic. 12/04 13:37 Order name: D-Dimer; Complete Time: 15:53 ci 12/04 15:53 Interpretation: Abnormal: D-DIMER 1.969. ci 12/04 13:37 Order name: LFT's; Complete Time: 15:53 ci 12/04 15:54 Interpretation: Abnormal: ALK 241. ci 12/04 13:37 Order name: Magnesium; Complete Time: 15:53 ci 12/04 13:37 Order name: NT PRO-BNP; Complete Time: 15:53 ci 12/04 15:54 Interpretation: Abnormal: NT PRO-BNP 1165. ci 12/04 13:37 Order name: Troponin HS; Complete Time: 15:53 ci 12/04 15:55 Order name: Blood Culture Adult (2) ci 12/04 15:55 Order name: Lactate w/ 2H reflex if indic.; Complete Time: 17:18 ci 12/04 18:59 Order name: CBC with Automated Diff EDMS 12/04 18:59 Order name: CBC with Automated Diff EDMS 12/04 18:59 Order name: Comprehensive Metabolic Panel EDMS 12/04 18:59 Order name: Comprehensive Metabolic Panel EDMS 12/04 18:59 Order name: Lipid Profile EDMS 12/04 18:59 Order name: Lipid Profile EDMS 12/04 18:59 Order name: Protime (+INR) EDMS 12/04 18:59 Order name: Protime (+INR) EDMS 12/04 18:59 Order name: PTT, Activated Partial Thromb EDMS 12/04 18:59 Order name: PTT, Activated Partial Thromb EDMS 12/04 18:59 Order name: Troponin High Sensitivity EDMS 12/04 18:59 Order name: Troponin High Sensitivity EDMS 12/04 18:59 Order name: Troponin High Sensitivity EDMS 12/04 19:00 Order name: NT PRO-BNP EDMS 12/04 13:37 Order name: XRAY Chest (1 view); Complete Time: 15:53 ci 12/04 15:54 Interpretation: Abnormal: RLL PNA. ci 12/04 19:00 Order name: Echo with Doppler EDMS 12/04 19:00 Order name: Echo with Doppler EDMS 12/04 19:02 Order name: Chest Angio EDMS 12/04 19:02 Order name: Chest Angio EDMS 12/04 13:37 Order name: EKG; Complete Time: 13:37 ci 12/04 13:37 Order name: Cardiac monitoring; Complete Time: 13:39 ci 12/04 13:37 Order name: EKG - Nurse/Tech; Complete Time: 13:57 ci 12/04 13:37 Order name: IV Saline Lock; Complete Time: 13:39 ci 12/04 13:37 Order name: Labs collected and sent; Complete Time: 13:57 ci 12/04 13:37 Order name: O2 Per Protocol; Complete Time: 13:39 ci 12/04 13:37 Order name: O2 Sat Monitoring; Complete Time: 13:39 ci 12/04 18:06 Order name: Oxygen: 2L NC for increased work of breathing; Complete Time: 18:10 ci Administered Medications: 16:36 Drug: AZITHromycin IVPB 500 mg IVPB once over 1 hrs; (mix in 250 mL NS) Route: IVPB; kc6 Infused Over: 1 hrs; Site: right antecubital; 18:02 Follow up: Response: No adverse reaction; IV Status: Completed infusion; IV Intake: kc6 250ml 16:36 Drug: DuoNeb Nebulize (3:1) (2.5 mg - 0.5 mg) 3 ml Nebulizer once Route: Nebulizer; kc6 18:02 Follow up: Response: No adverse reaction kc6 18:02 Drug: vancoMYCIN IVPB 1.5 grams IVPB at calculated rate once Route: IVPB; Rate: kc6 calculated rate; Site: right antecubital; 18:58 Follow up: Response: No adverse reaction; IV Status: Infusion continued upon admission; kc6 IV Intake: 250ml Disposition Summary: 12/04/24 16:29 Hospitalization Ordered Notes: Hospitalization Status: Inpatient Admission ci Provider: Brent Rowan Location: Telemetry/MedSurg (Inpatient) ci Condition: Stable ci Problem: new ci Symptoms: are unchanged ci Bed/Room Type: Standard ci Room Assignment: [facility](12/04/24 20:15) rv1 Diagnosis - Pneumonia, unspecified organism ci Forms: - Medication Reconciliation Form ci - SBAR form ci - Leadership Thank You Letter ci Signatures: Dispatcher [employer] Liberty Badillo RN RN kc6 Brianda Sylvester rv1 Iheemilyunekkhoau[place]ino ci Corrections: (The following items were deleted from the chart) 17:22 15:53 Abnormal: WBC 18.20. ci ci 17:23 17:22 Abnormal: WBC 18.20; significant leukocytosis, possibile sepsis. ci ci 20:15 16:29 ci rv1
--- NOTE | 2024-12-04 16:29 | ER ---
Nurse's Notes [facility] Name: Connor Pruett Age: 79 yrs Sex: Male : 1945 Arrival Date: 12/04/2024 Time: 13:33 Bed 13 Private MD: Diagnosis: Pneumonia, unspecified organism Presentation: 12/04 13:35 Chief complaint: EMS states: they were toned out for cough and SOB. Coronavirus screen: kc At this time, the client does not indicate any symptoms associated with coronavirus-19. Ebola Screen: No symptoms or risks identified at this time. Initial Sepsis Screen: Does the patient meet any 2 criteria? RR > 20 per min. HR > 90 bpm. Does the patient have a suspected source of infection? No. Patient's initial sepsis screen is negative. Risk Assessment: Do you want to hurt yourself or someone else? Patient reports no desire to harm self or others. Onset of symptoms was December 04, 2024. 13:35 Method Of Arrival: EMS: [place] [id number] 13:35 Acuity: LOLIS 2 [facility] 13:39 Care prior to arrival: IV initiated. 20 GA, in the right forearm, Glucose check: 150. kc6 Triage Assessment: 21:20 Respiratory: Onset: The symptoms/episode began/occurred gradually, the patient has me1 moderate shortness of breath. Historical: - Allergies: 13:36 PENICILLINS; kc6 - PMHx: 13:36 High Cholesterol; Hypertension; Chronic obstructive lung disease; kc6 - PSHx: 13:36 hernia repair; face; kc6 - Immunization history:: Adult Immunizations up to date. - Infectious Disease History:: Denies. - Social history:: Smoking status: Patient reports the use of cigarette tobacco products, smokes one pack cigarettes per day. - History obtained from: EMS. Screenin:37 [facility] ED Fall Risk Assessment (Adult) History of falling in the last 3 months, kc6 including since admission No falls in past 3 months (0 pts) Confusion or Disorientation No (0 pts) Intoxicated or Sedated No (0 pts) Impaired Gait No (0 pts) Mobility Assist Device Used No (0 pt) Altered Elimination No (0 pt) Score/Fall Risk Level 0 - 2 = Low Risk Oriented to surroundings, Maintained a safe environment, Educated pt \\T\\ family on fall prevention, incl call for assistance when getting out of bed. Abuse screen: Denies threats or abuse. Denies injuries from another. Nutritional screening: No deficits noted. Tuberculosis screening: No symptoms or risk factors identified. Assessment: 13:45 Reassessment: per the daughter, she states, "my mom just on . I kc6 physically can't take care him anymore. The hospice company that my mom used is just waiting on a call from you [employer] to get him started. I haven't slept since she . Is there any way he can stay her a night or two so we can get that process started?" family made aware that I will update the MD. 14:10 General: Appears in no apparent distress. comfortable, ill, well groomed, Behavior is kc6 calm, cooperative, appropriate for age. Pain: Denies pain. Neuro: Level of Consciousness is awake, alert, obeys commands, Oriented to person, place, time, situation, Appropriate for age. Cardiovascular: Denies chest pain, Heart tones S1 S2 present Capillary refill < 3 seconds Rhythm is sinus tachycardia. Respiratory: Reports shortness of breath on exertion cough that is productive, Airway is patent Trachea midline Respiratory effort is even, unlabored, Respiratory pattern is regular, symmetrical, Breath sounds with crackles bilaterally. GI: No signs and/or symptoms were reported involving the gastrointestinal system. : No signs and/or symptoms were reported regarding the genitourinary system. EENT: No signs and/or symptoms were reported regarding the EENT system. Derm: No signs and/or symptoms reported regarding the dermatologic system. Skin is intact, is healthy with good turgor, Skin is pink, warm \\T\\ dry. Musculoskeletal: No signs and/or symptoms reported regarding the musculoskeletal system. Circulation, motion, and sensation intact. Range of motion: intact in all extremities. 15:10 Reassessment: Patient appears in no apparent distress at this time. No changes from kc6 previously documented assessment. Patient and/or family updated on plan of care and expected duration. Pain level reassessed. Patient is alert, oriented x 3, equal unlabored respirations, skin warm/dry/pink. 16:20 Reassessment: Patient appears in no apparent distress at this time. No changes from kc6 previously documented assessment. Patient and/or family updated on plan of care and expected duration. Pain level reassessed. Patient is alert, oriented x 3, equal unlabored respirations, skin warm/dry/pink. 18:03 Reassessment: Patient appears in no apparent distress at this time. No changes from [facility] previously documented assessment. Patient and/or family updated on plan of care and expected duration. Pain level reassessed. Patient is alert, oriented x 3, equal unlabored respirations, skin warm/dry/pink. 18:58 Reassessment: Patient appears in no apparent distress at this time. No changes from [facility] previously documented assessment. Patient and/or family updated on plan of care and expected duration. Pain level reassessed. Patient is alert, oriented x 3, equal unlabored respirations, skin warm/dry/pink. Patient states symptoms have improved. Vital Signs: 13:35 BP 142 / 82; Pulse 107; Resp 21 S; Temp 98.9(O); Pulse Ox 95% on R/A; Weight 56.7 kg kc6 (R); Height 6 ft. 1 in. (R); 15:05 BP 139 / 74; Pulse 102; Resp 25 S; Pulse Ox 94% on R/A; kc6 16:39 BP 122 / 71; Pulse 104; Resp 21 S; Pulse Ox 100% on Nebulizer Mask; kc6 18:03 BP 117 / 64; Pulse 108; Resp 25 S; Pulse Ox 92% on R/A; kc6 19:00 BP 119 / 90; Pulse 100; Resp 22; Pulse Ox 99% ; me1 20:00 BP 131 / 61; Pulse 101; Resp 22; Pulse Ox 96% ; me1 21:00 BP 121 / 72; Pulse 102; Resp 19; Pulse Ox 96% ; me1 13:35 Body Mass Index 16.49 (56.70 kg, 185.42 cm) [facility] ED Course: 13:35 Patient arrived in ED. [facility] 13:35 Chino Drummond is Attending Physician. ci 13:36 Triage completed. [facility] 13:36 Arm band placed on. kc6 13:37 Patient has correct armband on for positive identification. Bed in low position. Call [facility] light in reach. Side rails up X2. equipment monitor phototypesetting on. Pulse ox on. NIBP on. Door closed. Noise minimized. Lights dimmed. Pillow given. Verbal reassurance given. 13:37 Patient maintains SpO2 saturation greater than 95% on room air. kc6 13:39 Maintain EMS IV. Dressing intact. Good blood return noted. Site clean \\T\\ dry. Gauge \\T\\ more 6 site: 20G RAC. Flushed with 10 mL NS. 13:47 XRAY Chest (1 view) In Process Unspecified. EDMS 13:56 Liberty Lozoya, JUAN is Primary Nurse. kc6 16:25 First set of blood cultures drawn by me. tm3 16:28 Brent Rowan MD is Hospitalizing Provider. ci 16:40 Second set of blood cultures drawn by me. tm3 18:59 Assisted with urinal. kc6 19:00 Provided Education on: POC. Verbalized understanding.. me1 19:06 No provider procedures requiring assistance completed. Patient admitted, IV remains in kc6 place. Administered Medications: 16:36 Drug: AZITHromycin IVPB 500 mg IVPB once over 1 hrs; (mix in 250 mL NS) Route: IVPB; kc6 Infused Over: 1 hrs; Site: right antecubital; 18:02 Follow up: Response: No adverse reaction; IV Status: Completed infusion; IV Intake: kc6 250ml 16:36 Drug: DuoNeb Nebulize (3:1) (2.5 mg - 0.5 mg) 3 ml Nebulizer once Route: Nebulizer; kc6 18:02 Follow up: Response: No adverse reaction kc6 18:02 Drug: vancoMYCIN IVPB 1.5 grams IVPB at calculated rate once Route: IVPB; Rate: kc6 calculated rate; Site: right antecubital; 18:58 Follow up: Response: No adverse reaction; IV Status: Infusion continued upon admission; kc6 IV Intake: 250ml Medication: 19:06 VIS not applicable for this client. kc6 Intake: 18:02 IV: 250ml; Total: 250ml. kc6 18:58 IV: 250ml; Total: 500ml. kc6 Outcome: 16:29 Decision to Hospitalize by Provider. ci 19:06 Admitted to ER Hold. Please see [facility] for further documentation. kc6 19:06 Condition: good 19:06 Instructed on the need for admit, 20:51 Admitted to Tele accompanied by tech, via stretcher, room 411, with chart, Report me1 called to faxed, receipt confirmed with Kalie 20:51 Condition: stable 20:51 Instructed on the need for admit, 20:53 Condition: stable me1 20:53 Instructed on the need for admit, 21:26 Patient left the ED. me1 Signatures: Dispatcher [employer] COTY Butt Puneet tm3 Liberty Lozoya, RN RN kc6 Kristina Paul RN RN me1 Chino Drummond Corrections: (The following items were deleted from the chart) 20:53 20:51 Admitted to Med/surg accompanied by tech, via stretcher, room 415, with chart, me1 Report called to faxed, receipt confirmed with Kalie me1
--- NOTE | 2024-12-04 16:35 | P.HP ---
Patient History Date of Service: 12/04/24 Physical Examination - Studies Laboratory Data (last 24 hrs) 12/04/24 12/04/24 13:53 13:53 WBC 18.20 H Hgb 10.1 L Hct 29.8 L Plt Count 703 H Sodium 137 Potassium 4.2 BUN 20 H Creatinine 0.80 Glucose 92 Magnesium 2.1 Total Bilirubin 0.4 AST 22 ALT 50 Alkaline Phosphatase 241 H Assessment and Plan - Advance Directives Does patient have a Living Will: No Does patient have a Durable POA for Healthcare: No
[2024-12-04] MEDS ORDERED: IPRATROPIUM BROM 0.5MG/2.5ML NEB PRN (18:51)
[2024-12-04] MEDS ORDERED: ONDANSETRON 4 MG/2 ML VIAL IV PRN (18:51)
[2024-12-04] MEDS ORDERED: ALBUTEROL 2.5 MG/3 ML NEB SOL NEB PRN (18:51)
[2024-12-04] MEDS ORDERED: ACETAMINOPHEN 500 MG TAB PO PRN (18:51)
[2024-12-04 21:59] VITALS: BMI 16.5
[2024-12-05] MEDS: NA CHLORIDE 0.9% 1,000 ML IV SCH (00:29)
[2024-12-05] MEDS: PIPER TAZO 3.375 GM in NA CHLORIDE 0.9% 100 ML IV SCH (00:32)
[2024-12-05 06:39] LABS: Absolute Monocytes 2.1 K/uL (0.1-1.3); Absolute Neutrophil 14.5 K/uL (1.8-8.0); Basophils % 0.2 % (0-1.3); Eosinophils % 0.1 % (0-4.4); Hemoglobin 9.4 g/dL (13.6-17.9); Lymphocytes % 5.4 % (15.3-44.8); MCH 32.8 pg (27.0-35.0); MCHC 33.8 g/dL (32.0-36.0); MCV 96.9 fL (80-100); MPV 6.7 fL (7.6-11.3); Monocytes % 11.7 % (3.3-12.3); Neutrophils % 82.6 % (41.7-73.7); Platelets 654 thou/uL (152-406); RBC Red Blood Cell Count 2.88 M/uL (4.33-5.43); Red Cell Distribution Width 14.7 % (12.1-15.2)
[2024-12-05 06:51] LABS: PTT, Activated Partial Thromb 29.8 SECONDS (27.2-37.4); Protime INR 1.33
[2024-12-05 07:00] LABS: Albumin 1.6 g/dL (3.4-5.0); Albumin/Globulin Ratio 0.3 (1.1-1.8); Anion Gap 6.6 mEq/L (5.0-15.0); Bilirubin Total 0.4 mg/dL (0.2-1.0); Globulin 4.6 g/dL (2.3-3.5); Potassium 3.6 mEq/L (3.5-5.1); Protein, Total 6.2 g/dL (6.4-8.2); Troponin High Sensitivity 17.7 pg/mL (<58.9)
--- NOTE | 2024-12-05 08:39 | RAD REPORT ---
EXAMINATION: CTA CHEST PE CLINICAL INDICATION: Male, 79 years old. PE TECHNIQUE: This examination was performed according to an angiographic protocol with 3D post-processi ng. This involves 3D reconstructions, MIPs, volume rendered images and/or shaded surface rendering. One or more of the following dose reduction techniques were used: Automated exposure control, adjustm ent of the mA and/or kV according to patient size, and/or iterative reconstruction. Unless otherwise specified, incidental findings do not require dedicated imaging follow-up. [id number]. COMPARISON: Yesterday chest radiograph FINDINGS: LOWER NECK: Visualized thyroid gland and soft tissues are normal. LUNGS AND AIRWAYS: Consolidative airspace disease in the right lower and right middle lobe. There are some areas of intermixed fluid attenuation which could reflect sequela of a necrotizing pneumonia. Bronchial wall thickening is present. Mucoid impacted right lower lobe airways. PLEURA: Small right pleural effusion. MEDIASTINUM AND LYMPH NODES: Mild mediastinal and hilar lymphadenopathy which is probably reactive. P atulous esophagus with fluid and/or debris. THORACIC AORTA: Atherosclerosis PULMONARY ARTERIES: Caliber is within normal limits. No pulmonary emboli identified. HEART: Normal heart size. Multivessel coronary artery diseaseNo significant pericardial effusion. OSSEOUS STRUCTURES AND CHEST WALL: Thoracic compression fractures including T7, T10, T12, L1 which ar e favored subacute or chronic. UPPER ABDOMEN: Benign appearing low density liver lesions. Adrenal thickening. IMPRESSION: No evidence of pulmonary emboli to the subsegmental level. Right middle and right lower lobe pneumoni a. Possible necrotizing component as there is some areas of liquefaction in the right lower lobe. Small bilateral pleural effusions. Aspiration may be contributing. Mild interstitial edema as well.
[2024-12-05] MEDS: FUROSEMIDE 20 MG/ 2ML VIAL IV SCH (09:31)
[2024-12-05] MEDS: ENOXAPARIN 40 MG/0.4 ML SQ SCH (09:32)
--- NOTE | 2024-12-05 11:46 | ECHO ---
HEIGHT: 6 ft 1 in WEIGHT: 125 lb 0 oz DATE OF STUDY: 12/05/[address]: Brent Rowan MD 2-DIMENSIONAL: YES M.MODE: YES DOPPLER: YES COLOR FLOW: YES TDS: YES PORTABLE: YES DEFINITY: BUBBLE STUDY: DIAGNOSIS: CONGESTIVE HEART FAILURE CARDIAC HISTORY: CATHERIZATION: SURGERY: PROSTHETIC VALVE: PACEMAKER: MEASUREMENTS (cm) DIASTOLIC (NORMALS) SYSTOLIC (NORMALS) IVSd 1.1 (0.6-1.2) LA Diam 3.2 (1.9-4.0) LVEF 60-65% LVIDd 3.7 (3.5-5.7) LVIDs 2.3 (2.0-3.5) %FS 37% LVPWd 1.2 (0.6-1.2) Ao Diam 2.8 (2.0-3.7) 2 DIMENSIONAL ASSESSMENT: RIGHT ATRIUM: NORMAL LEFT ATRIUM: NORMAL RIGHT VENTRICLE: NORMAL LEFT VENTRICLE: NORMAL TRICUSPID VALVE: TRACE TRICUSPID REGURGITATION MITRAL VALVE: NORMAL PULMONIC VALVE: NORMAL AORTIC VALVE: NORMAL PERICARDIAL EFFUSION: NONE AORTIC ROOT: NORMAL LEFT VENTRICULAR WALL MOTION: NORMAL DOPPLER/COLOR FLOW: NORMAL COMMENTS: 1. NORMAL LEFT VENTRICULAR SYSTOLIC FUNCTION, EJECTION FRACTION 60-65%, NORMAL WALL MOTION 2. NORMAL DIASTOLIC FUNCTION 3. NORMAL FILLING PRESSURE (RIGHT ATRIAL PRESSURE 0-5 mmHg) TECHNOLOGIST: ISRAEL GALLAGHER
--- NOTE | 2024-12-05 12:35 | EKG ---
Test Date: 2024-12-04 Test Time: 13:47:37 Tutorial Laboratory Supervisor: REENA MEASUREMENT RESULTS: Intervals: Rate: 100 TN: 120 QRSD: 78 QT: 340 QTc: 438 [place]: P: 74 TN: 120 QRS: 93 T: 55 INTERPRETIVE STATEMENTS: Normal sinus rhythm Normal ECG Compared to ECG 09/29/2024 13:23:57 Sinus arrhythmia no longer present Right-axis deviation no longer present Electronically Signed On 12-05-24 12:32:38 CDT by Crow Menezes
[2024-12-05] MEDS: ALBUMIN HUMAN 25% 100 ML IV SCH (16:15)
[2024-12-05] MEDS: MELATONIN 5 MG TABLET PO PRN (20:16)
[2024-12-05] MEDS: ALPRAZOLAM 0.5 MG TABLET PO PRN (20:16)
[2024-12-05] MEDS: ENSURE ENLIVE 237 ML CAN PO SCH (20:20)
[2024-12-06 07:51] LABS: Magnesium 2.4 mg/dL (1.6-2.4); Phosphorus 2.8 mg/dL (2.5-4.9); Potassium 3.1 mEq/L (3.5-5.1)
[2024-12-06] MEDS: NICOTINE 21 MG/PAT TD SCH (08:13)
[2024-12-06 11:49] LABS: Anion Gap 3.5 mEq/L (5.0-15.0); Potassium 3.5 mEq/L (3.5-5.1)
[2024-12-06 11:57] LABS: Absolute Basophils 0.1 K/uL (0-0.5); Absolute Lymphocytes (CBC) 0.8 K/uL (0.7-4.9); Absolute Monocytes 1.5 K/uL (0.1-1.3); Absolute Neutrophil 13.2 K/uL (1.8-8.0); Basophils % 0.4 % (0-1.3); Eosinophils % 0.3 % (0-4.4); Hematocrit 28.1 % (39.6-49.0); Hemoglobin 9.5 g/dL (13.6-17.9); MCH 32.8 pg (27.0-35.0); MCHC 33.9 g/dL (32.0-36.0); MCV 96.5 fL (80-100); MPV 7.1 fL (7.6-11.3); Monocytes % 9.3 % (3.3-12.3); Nucleated Red Blood Cells % 0.1 % (0-0); Platelets 660 thou/uL (152-406); RBC Red Blood Cell Count 2.91 M/uL (4.33-5.43); Red Cell Distribution Width 14.3 % (12.1-15.2)
[2024-12-06] MEDS: ACETAMINOPHEN 500 MG TAB PO PRN (12:32)
[2024-12-06] MEDS: MORPHINE 2 MG/ML SYR IV PRN (13:50)
[2024-12-07 07:19] LABS: Anion Gap 4.6 mEq/L (5.0-15.0); Potassium 3.6 mEq/L (3.5-5.1)
[2024-12-07] MEDS: POTASSIUM 25 MEQ EFFERV TAB PO ONE (08:52)
--- NOTE | 2024-12-07 16:06 | P.HP ---
Certification for Inpatient Patient admitted to: Inpatient With expected LOS: >2 Midnights Patient will require the following post-hospital care: Longterm Practitioner: I am a practitioner with admitting privileges, knowledge of patient current condition, hospital course, and medical plan of care. Services: Services provided to patient in accordance with Admission requirements found in Title 42 Section 412.3 of the Code of Federal Regulations Patient History Date of Service: 12/04/24 Reason for admission: Generalized weakness; upper respiratory infection History of Present Illness: Patient is an 79-year-old gentleman who came to the hospital with altered mental status. Patient with generalized weakness and has been feeling ill for the last few weeks. Patient was short of breath and tachypneic. Patient's recently and has been seriously depressed. Patient decided come into the emergency room by his daughter who wanted him evaluated. In the ER patient was tachypneic and hypoxic and appeared very disheveled and dehydrated. We were ahead and started patient on IV fluids and IV antibiotics. Patient will be admitted to the hospital for further evaluation. Allergies Penicillins Adverse Reaction (Severe, Verified 12/04/24 23:53) Hives/Rash Home Medications: ALPRAZolam [Xanax] 0.5 mg PO BID PRN 12/05/24 - Past Medical/Surgical History Has patient received pneumonia vaccine in the past: Yes Diabetic: No -: HTN -: HLD -: COPD Past Surgical History: Patient denies surgical history - Family History Father Family History: Reviewed- Non-Contributory - Social History Smoking Status: Current every day smoker Alcohol use: No CD- Drugs: No Caffeine use: No Place of Residence: Home Review of Systems is unable to be obtained Physical Examination - Vital Signs Temperature: 98.5 F Blood Pressure: 118/59 Pulse: 100 Respirations: 18 Pulse Ox (%): 93 - Physical Exam General: Alert, In no apparent distress, Cachectic, Disheveled, Moderate distress HEENT: Atraumatic, PERRLA, Mucous membr. moist/pink, Other, EOMI, Sclerae nonicteric Neck: Supple, 2+ carotid pulse no bruit, No LAD, Without JVD or thyroid abnormality Respiratory: Diminished, Expiratory wheezes Cardiovascular: Regular rate/rhythm, Normal S1 S2, Systolic murmur Gastrointestinal: Normal bowel sounds, Soft and benign, Non-distended, No tenderness Musculoskeletal: No clubbing, No swelling, Swelling (Bilateral lower extremities) Integumentary: Skin breakdown, Tenderness/swelling (Bilateral lower extremities), Pressure ulcer Neurological: Sensation intact, Cranial nerves 3-12 intact, Abnormal gait, Abnormal strength Lymphatics: No axilla or inguinal lymphadenopathy Assessment & Plan - Problems (Diagnosis) (1) Acute pneumonia Current Visit: Yes Status: Acute (2) COPD with acute exacerbation Current Visit: Yes Status: Acute (3) HLD (hyperlipidemia) Current Visit: Yes Status: Acute (4) HTN (hypertension) Current Visit: Yes Status: Acute - Plan 1. Continue with IV antibiotics 2. Awaiting sputum and blood culture 3. Repeat chest x-ray 4. Will proceed with CT scan of the chest and echocardiogram 5. Physical therapy evaluation 6. Continue with nebs as needed 7. O2 per protocol 8. Continue with gentle hydration 9. Repeat labs including CBC and renal function in a.m. 10. GI and DVT prophylaxis Discharge Plan: [facility] Plan to discharge in: Greater than 2 days - Advance Directives Does patient have a Living Will: Yes Does patient have a Durable POA for Healthcare: Yes - Code Status/Comfort Care Code Status Assessed: Yes Code Status: Do Not Attempt Resuscitat Critical Care: No Time Spent Managing PTS Care (In Minutes): 45
[2024-12-07] MEDS: NICOTINE 21 MG/PAT TD SCH (18:26)
--- NOTE | 2024-12-08 01:08 | P.PN ---
Date of Service: 12/05/24 Subjective patient looks much better after IV hydration. Encourage patient does work with the therapy is trying to build his strength up by going to a rehab for a short term. Physical therapy is consulted. Continue with antibiotics and hydration. Physical Examination - Vital Signs reviewed - Physical Exam General: Alert, In no apparent distress, Cachectic, Disheveled Respiratory: Diminished, Expiratory wheezes Cardiovascular: Regular rate/rhythm, Normal S1 S2, Systolic murmur Gastrointestinal: Normal bowel sounds, Soft and benign, Non-distended, No tenderness Musculoskeletal: No clubbing, No swelling, Swelling (Bilateral lower extremities) Integumentary: Skin breakdown, Tenderness/swelling (Bilateral lower extremities), Pressure ulcer Neurological: Generalized weakness, Abnormal gait, Abnormal strength Assessment & Plan - Problems (Diagnosis) (1) Acute pneumonia Current Visit: Yes Status: Acute (2) COPD with acute exacerbation Current Visit: Yes Status: Acute (3) HLD (hyperlipidemia) Current Visit: Yes Status: Acute (4) HTN (hypertension) Current Visit: Yes Status: Acute - Plan Continue with plan of care as mentioned below: 1. Continue with IV antibiotics 2. Awaiting sputum and blood culture 3. Repeat chest x-ray 4. Will proceed with CT scan of the chest and echocardiogram 5. Physical therapy evaluation 6. Continue with nebs as needed 7. O2 per protocol 8. Continue with gentle hydration 9. Repeat labs including CBC and renal function in a.m. 10. GI and DVT prophylaxis Discharge Plan: Shelter Plan to discharge in: Greater than 2 days - Advance Directives Does patient have a Living Will: Yes Does patient have a Durable POA for Healthcare: Yes - Code Status/Comfort Care Code Status Assessed: Yes Code Status: Do Not Attempt Resuscitat Critical Care: No Time Spent Managing PTS Care (In Minutes): 35
--- NOTE | 2024-12-08 01:08 | P.PN ---
Date of Service: 12/06/24 Subjective patient with no new changes and clinically doing better. Working on discharge planning. Family decided to go to a senior care facility. He will plan on going hospice care once he leaves rehabilitation. Physical Examination - Vital Signs reviewed - Physical Exam General: Alert, In no apparent distress, Cachectic, Disheveled Respiratory: Diminished, Expiratory wheezes Cardiovascular: Regular rate/rhythm, Normal S1 S2, Systolic murmur Gastrointestinal: Normal bowel sounds, Soft and benign, Non-distended, No tenderness Musculoskeletal: No clubbing, No swelling, Swelling (Bilateral lower extremities) Integumentary: Skin breakdown, Tenderness/swelling (Bilateral lower extremities), Pressure ulcer Neurological: Generalized weakness, Abnormal gait, Abnormal strength Assessment & Plan - Problems (Diagnosis) (1) Acute pneumonia Current Visit: Yes Status: Acute (2) COPD with acute exacerbation Current Visit: Yes Status: Acute (3) HLD (hyperlipidemia) Current Visit: Yes Status: Acute (4) HTN (hypertension) Current Visit: Yes Status: Acute - Plan Continue with plan of care as mentioned below: 1. Continue with IV antibiotics 2. Awaiting sputum and blood culture 3. Repeat chest x-ray 4. Will proceed with CT scan of the chest and echocardiogram 5. Physical therapy evaluation 6. Continue with nebs as needed 7. O2 per protocol 8. Continue with gentle hydration 9. Repeat labs including CBC and renal function in a.m. 10. GI and DVT prophylaxis Discharge Plan: [facility] Plan to discharge in: Greater than 2 days - Advance Directives Does patient have a Living Will: Yes Does patient have a Durable POA for Healthcare: Yes - Code Status/Comfort Care Code Status Assessed: Yes Code Status: Do Not Attempt Resuscitat Critical Care: No Time Spent Managing PTS Care (In Minutes): 35
--- NOTE | 2024-12-08 01:11 | P.PN ---
Date of Service: 12/07/24 Subjective Patient continues to improve. Able to work with physical therapy today. Working on discharge planning to [facility] bed [facility] a [facility]. Physical Examination - Vital Signs reviewed - Physical Exam General: Alert, In no apparent distress, Cachectic, Disheveled Respiratory: Diminished, Expiratory wheezes Cardiovascular: Regular rate/rhythm, Normal S1 S2, Systolic murmur Gastrointestinal: Normal bowel sounds, Soft and benign, Non-distended, No tenderness Musculoskeletal: No clubbing, No swelling, Swelling (Bilateral lower extremities) Integumentary: Skin breakdown, Tenderness/swelling (Bilateral lower extremities), Pressure ulcer Neurological: Generalized weakness, Abnormal gait, Abnormal strength Assessment & Plan - Problems (Diagnosis) (1) Acute pneumonia Current Visit: Yes Status: Acute (2) COPD with acute exacerbation Current Visit: Yes Status: Acute (3) HLD (hyperlipidemia) Current Visit: Yes Status: Acute (4) HTN (hypertension) Current Visit: Yes Status: Acute - Plan Continue with plan of care as mentioned below: 1. Continue with IV antibiotics 2. Cultures are negative 3. Repeat chest x-ray 4. CT was reviewed; patient with pneumonia will continue with antibiotic therapy. Family does not want any aggressive intervention. 5. Physical therapy evaluation 6. Continue with nebs as needed 7. O2 per protocol 8. Continue with gentle hydration 9. Repeat labs including CBC and renal function in a.m. 10. GI and DVT prophylaxis Discharge Plan: [facility] Plan to discharge in: Greater than 2 days - Advance Directives Does patient have a Living Will: Yes Does patient have a Durable POA for Healthcare: Yes - Code Status/Comfort Care Code Status Assessed: Yes Code Status: Do Not Attempt Resuscitat Critical Care: No Time Spent Managing PTS Care (In Minutes): 30
[2024-12-08 06:27] LABS: ALT/SGPT 100 U/L (16-61); AST/SGOT 64 U/L (15-37); Albumin 1.8 g/dL (3.4-5.0); Albumin/Globulin Ratio 0.4 (1.1-1.8); Alkaline Phosphatase 246 U/L (45-117); Anion Gap 2.5 mEq/L (5.0-15.0); BUN Blood Urea Nitrogen 27 mg/dL (7-18); Bicarbonate 40 mEq/L (21-32); Bilirubin Total 0.2 mg/dL (0.2-1.0); Globulin 4.7 g/dL (2.3-3.5); Glomerular Filtration Rate 94 ml/min (=/>90); Glucose Level 98 mg/dL (74-106); Potassium 3.5 mEq/L (3.5-5.1); Protein, Total 6.5 g/dL (6.4-8.2); Sodium Level 138 mEq/L (136-145)
[2024-12-08 06:29] LABS: Bilirubin Direct < 0.2 mg/dL (0-0.2)
--- NOTE | 2024-12-08 07:00 | RAD REPORT ---
EXAMINATION: ONE VIEW CHEST XR CLINICAL INDICATION: pneumonia TECHNIQUE: Frontal chest projection is submitted. Examination is limited by patient positioning and t echnique. COMPARISON: 12/04/2024 FINDINGS: Advanced emphysema is seen. Moderate airspace opacity in the right lung base noted appearing similar to slightly progressive relative to comparison study. The heart is upper limit of normal in size. No displaced fractures identified. Atherosclerosis of the aortic arch.
[2024-12-08] MEDS: ESCITALOPRAM 20 MG TAB PO SCH (08:48)
--- NOTE | 2024-12-08 13:19 | P.PN ---
Subjective Date of Service: 12/08/24 Chief Complaint: Generalized weakness; upper respiratory infection Subjective: No chest pain or shortness of breath. No nausea or vomiting. No abdominal pain. No obvious bleeding. Looks comfortable in the bed. Objective: General appearance: Alert and comfortable CVS: Normal S1 and S2 Lungs: Clear to auscultation bilaterally Abdomen: Soft, bowel sounds present, no tenderness Extremities: No lower extremity edema Physical Examination - Vital Signs Temperature: 97.5 F Blood Pressure: 120/65 Pulse: 87 Respirations: 15 Pulse Ox (%): 93 Assessment And Plan - Plan 1. Pneumonia: possible aspiration, Continue with IV antibiotics - WBC improving, will need repeat chest x-ray or CT chest in a month or so for follow-up. - CT was reviewed; patient with pneumonia will continue with antibiotic therapy. Family does not want any aggressive intervention. - Echo normal EF, 60 to 65%. 2. Anemia: Probably chronic, monitor closely.
[2024-12-08] MEDS: ALPRAZOLAM 0.5 MG TABLET PO PRN (15:35)
[2024-12-09 05:10] LABS: Absolute Basophils 0.1 K/uL (0-0.5); Absolute Lymphocytes (CBC) 1.1 K/uL (0.7-4.9); Absolute Monocytes 1.1 K/uL (0.1-1.3); Absolute Neutrophil 14.2 K/uL (1.8-8.0); Basophils % 0.4 % (0-1.3); Eosinophils % 0.3 % (0-4.4); Hematocrit 27.1 % (39.6-49.0); Hemoglobin 9.1 g/dL (13.6-17.9); Lymphocytes % 6.6 % (15.3-44.8); MCH 32.3 pg (27.0-35.0); MCHC 33.6 g/dL (32.0-36.0); MCV 96.1 fL (80-100); MPV 7.1 fL (7.6-11.3); Monocytes % 6.4 % (3.3-12.3); Neutrophils % 86.3 % (41.7-73.7); Platelets 615 thou/uL (152-406); RBC Red Blood Cell Count 2.82 M/uL (4.33-5.43); Red Cell Distribution Width 14.8 % (12.1-15.2)
[2024-12-09 05:35] LABS: ALT/SGPT 89 U/L (16-61); AST/SGOT 55 U/L (15-37); Albumin 1.7 g/dL (3.4-5.0); Albumin/Globulin Ratio 0.4 (1.1-1.8); Alkaline Phosphatase 214 U/L (45-117); Anion Gap 3.7 mEq/L (5.0-15.0); BUN Blood Urea Nitrogen 27 mg/dL (7-18); Bicarbonate 38 mEq/L (21-32); Bilirubin Total 0.3 mg/dL (0.2-1.0); Globulin 4.6 g/dL (2.3-3.5); Glomerular Filtration Rate 98 ml/min (=/>90); Glucose Level 92 mg/dL (74-106); Magnesium 2.5 mg/dL (1.6-2.4); Phosphorus 2.3 mg/dL (2.5-4.9); Potassium 3.7 mEq/L (3.5-5.1); Protein, Total 6.3 g/dL (6.4-8.2); Sodium Level 140 mEq/L (136-145)
[2024-12-09 05:41] LABS: Bilirubin Direct < 0.2 mg/dL (0-0.2); Bilirubin Indirect, Calculated 0.1 mg/dL (0.2-0.8)
[2024-12-09 07:45] LABS: Differential Total Cells Count 100; Lymphocytes 7 % (15-42); Segmented Neutrophils 93 % (40-80)
[2024-12-09 07:46] LABS: Platelet Estimate INCR
[2024-12-09 07:47] LABS: Blood Morphology Comment NOT SEEN (NOT SEEN)
[2024-12-09] MEDS: POTASSIUM CL SA 10 MEQ TAB PO ONE (08:30)
[2024-12-09] MEDS ORDERED: SODIUM PHOSPHATE 30 MM in NA CHLORIDE 0.9% 500 ML IV ONE (08:40)
[2024-12-09] MEDS: SODIUM PHOSPHATE 15 MM in NA CHLORIDE 0.9% 250 ML IV ONE (10:52)
--- NOTE | 2024-12-09 12:35 | P.PN ---
Subjective Date of Service: 12/09/24 Chief Complaint: Generalized weakness; upper respiratory infection Subjective: No chest pain or shortness of breath. No nausea or vomiting. No abdominal pain. No obvious bleeding. Looks comfortable in the bed. Objective: General appearance: Alert and comfortable CVS: Normal S1 and S2 Lungs: Clear to auscultation bilaterally Abdomen: Soft, bowel sounds present, no tenderness Extremities: No lower extremity edema Physical Examination - Vital Signs Temperature: 97.6 F Blood Pressure: 117/73 Pulse: 60 Respirations: 15 Pulse Ox (%): 90 Assessment And Plan - Plan 1. Pneumonia: possible aspiration, Continue with IV antibiotics - WBC improving but little up againt today -will need repeat chest x-ray or CT chest in a month or so for follow-up. - CT was reviewed; patient with pneumonia will continue with antibiotic therapy. - Echo normal EF, 60 to 65%. 2. Anemia: Probably chronic, monitor closely. 3. Hypophos: replace and monitor Plan Discussed with patient and family at bedside, discussed with nursing staff, probably discharge to shelter tomorrow if WBC continues to drop.
[2024-12-10 05:43] LABS: Absolute Basophils 0.1 K/uL (0-0.5); Absolute Eosinophils 0.1 K/uL (0-0.5); Absolute Lymphocytes (CBC) 1.2 K/uL (0.7-4.9); Absolute Monocytes 0.7 K/uL (0.1-1.3); Absolute Neutrophil 10.8 K/uL (1.8-8.0); Basophils % 0.4 % (0-1.3); Eosinophils % 0.5 % (0-4.4); Hematocrit 27.7 % (39.6-49.0); Hemoglobin 9.4 g/dL (13.6-17.9); Lymphocytes % 9.5 % (15.3-44.8); MCH 32.3 pg (27.0-35.0); MCV 94.8 fL (80-100); MPV 6.9 fL (7.6-11.3); Monocytes % 5.8 % (3.3-12.3); Neutrophils % 83.8 % (41.7-73.7); Nucleated Red Blood Cells % 0.1 % (0-0); Platelets 700 thou/uL (152-406); RBC Red Blood Cell Count 2.92 M/uL (4.33-5.43); Red Cell Distribution Width 14.7 % (12.1-15.2)
[2024-12-10 05:56] LABS: Anion Gap 6.4 mEq/L (5.0-15.0); Magnesium 2.6 mg/dL (1.6-2.4); Potassium 3.4 mEq/L (3.5-5.1)
[2024-12-10 06:37] VITALS: O2SAT 93
[2024-12-10] MEDS: POTASSIUM 25 MEQ EFFERV TAB PO ONE (06:44)
--- NOTE | 2024-12-10 10:55 | P.DS ---
Admission Date: 12/04/24 Discharge Date: 12/10/24 Disposition: TRANSFER TO SNF - MEDICAL Discharge Condition: GOOD Reason for Admission: Generalized weakness; upper respiratory infection Hospital Course: Discharge diagnosis: 1. Pneumonia: possible aspiration, on IV zosyn - WBC improving -will need repeat CT chest in a month or so for follow-up. - DC on augmenting for 1 more week - Echo normal EF, 60 to 65%. 2. Anemia: Probably chronic, monitor closely. 3. Hypophosphatemia, hypokalemia: replaced 4. Hypertension: Continue home medications 5. MIld abnormal LFT's: f/u with PCP with repeat labs Subjective: No chest pain or shortness of breath. No nausea or vomiting. No abdominal pain. No obvious bleeding. Looks comfortable in the bed. had a Bowel movement yesterday and today. Objective: General appearance: Alert and comfortable CVS: Normal S1 and S2 Lungs: Clear to auscultation bilaterally Abdomen: Soft, bowel sounds present, no tenderness Extremities: No lower extremity edema Hospital course: 79 yo Patient admitted with pneumonia, there was concern of aspiration, he was started on IV Zosyn, WBC count improving, when I see the patient today he is doing well without any acute problems, he feels ready to go to rehab facility, his WBC count is improving, he was given antibiotics for 6 days so far, as his white count is still little high and CT scan was abnormal, I am going to give him another week of oral antibiotics, he will need repeat CT chest in 1 month to document resolution of pneumonia, if no improvement, he may need pulmonary follow-up at that time. No other acute issues going on so I am p josé luis to discharge him to go to SNF, follow-up with PCP with repeat labs and CT chest. Plan Discussed with patient and nursing staff, dc to SNF today. Vital Signs/Physical Exam: Temp Pulse Resp BP Pulse Ox 97.2 F 67 16 158/84 H 94 12/10/24 08:00 12/10/24 08:00 12/10/24 08:00 12/10/24 08:00 12/10/24 08:00 Laboratory Data at Discharge: WBC 12.90 thou/uL (4.3-10.9) H 12/10/24 05:18 Hgb 9.4 g/dL (13.6-17.9) L 12/10/24 05:18 Hct 27.7 % (39.6-49.0) L 12/10/24 05:18 Plt Count 700 thou/uL (152-406) H 12/10/24 05:18 PT 15.0 SECONDS (10-13.0) H 12/05/24 06:30 INR 1.33 12/05/24 06:30 APTT 29.8 SECONDS (27.2-37.4) 12/05/24 06:30 Sodium 142 mEq/L (136-145) 12/10/24 05:18 Potassium 3.4 mEq/L (3.5-5.1) L 12/10/24 05:18 BUN 26 mg/dL (7-18) H 12/10/24 05:18 Creatinine 0.63 mg/dL (0.70-1.30) L 12/10/24 05:18 Glucose 92 mg/dL (74-106) 12/10/24 05:18 Phosphorus 3.0 mg/dL (2.5-4.9) 12/10/24 05:18 Magnesium 2.6 mg/dL (1.6-2.4) H 12/10/24 05:18 Total Bilirubin 0.3 mg/dL (0.2-1.0) 12/09/24 04:18 AST 55 U/L (15-37) H 12/09/24 04:18 ALT 89 U/L (16-61) H 12/09/24 04:18 Alkaline Phosphatase 214 U/L (45-117) H 12/09/24 04:18 Triglycerides 75 mg/dL (<150) 12/05/24 06:30 Cholesterol 91 mg/dL (<200) 12/05/24 06:30 HDL Cholesterol 24 mg/dL (40-60) L 12/05/24 06:30 Cholesterol/HDL Ratio 3.79 12/05/24 06:30 Home Medications: ALPRAZolam [Xanax*] 0.5 mg PO BID PRN 12/05/24 Lisinopril [Zestril] 10 mg PO DAILY 12/09/24 Albuterol Neb [Proventil 0.083% Neb Soln] 2.5 mg NEB [id number] PRN 30 Days #1 amp 12/10/24 Amox/Clavulanate [Augmentin 875-125 Tab] 875 mg PO BID #14 tab 12/10/24 Nicotine [Nicoderm*] 21 mg TD DAILY #15 patch 12/10/24 New Medications: Albuterol Neb [Proventil 0.083% Neb Soln] 2.5 mg NEB [id number] PRN 30 Days #1 amp PRN Reason: Shortness Of Breath Amox/Clavulanate [Augmentin 875-125 Tab] 875 mg PO BID #14 tab Nicotine [Nicoderm*] 21 mg TD DAILY #15 patch Diet: Low sodium Activity: Ad az Followup: NONE,NONE [Primary Care Provider] - 1 Week (check CBC and CMP in 3-[address] chest iin 1 month, PCP to order and f/u on pneumonia) Time spent managing pt's care (in minutes): 34
[2024-12-10] MEDS: AMOX/K CLAV 875 MG TAB PO ONE (11:40)
[2024-12-10 12:50] VITALS: BP 145/75; TEMP 98
[2024-12-10] MEDS: HYDROCODONE/APAP 5/325 MG TAB PO PRN (14:55)
== END 2024-12-10 13:59 | DRG 177 ==
LOC: ER 13:33 → ERHOLD 18:51 → 4TH 20:36
PROVIDERS: ADMIT Hospitalist; ATTEND Hospitalist
DX: J69.0 Pneumonitis due to inhalation of food and vomit (principal); E43 Unspecified severe protein-calorie malnutrition; R64 Cachexia; J44.0 Chronic obstructive pulmonary disease with (acute) lower respiratory infection; J44.1 Chronic obstructive pulmonary disease with (acute) exacerbation; Z68.1 Body mass index [BMI] 19.9 or less, adult; E83.39 Other disorders of phosphorus metabolism; Z66 Do not resuscitate; I10 Essential (primary) hypertension; D64.9 Anemia, unspecified; J18.9 Pneumonia, unspecified organism; E78.5 Hyperlipidemia, unspecified; E87.6 Hypokalemia; R53.1 Weakness; R79.89 Other specified abnormal findings of blood chemistry
CPT/HCPCS: 36415; 71045; 71275; 80048; 80053; 80061; 80076; 82947; 83605; 83735; 83880; 84100; 84132; 84145; 84484; 85025; 85379; 85610; 85730; 87040; 93005; 93306; 94760; 96365; 96367; 97110; 97161; 97530; 99285; J1650; J1940; J2270; J2543; J3370; J7030; J7050; J7613; J7644; P9047; Q9967